=== PATIENT | male | born 1930 | race Caucasian/White ===

== ENCOUNTER → 2017-10-26 | Outpatient (CLI) | payer MEDICARE, OTHER ==
[~2017-10-26] MED LIST: ASPIR-TRIN325 M1 PO; AUGMENTIN875 MG PO; CELEBREX200 MG PO; Dyazide, Maxzide 37. PO; Ecotrin PO; FEOSOL325 MG PO; Feosol PO; HYDROCHLOROTH12.5 M3 PO; LIPITOR20 MG PO; LOTREL 5/101 CAPSULE PO; LOW DOSE ASPIRI81 M1 PO; NEXIUM40 MG PO; NORCO 5/3251 TABLET PO; SENOKOT S,PE1 TABLET PO; VYTORIN 10/41 TABLET PO; Vicodin,Lortab 5/500 PO; Vicodin,Norco 5/325 PO
== END | disposition home or self-care (01) ==
LOC: CDC 12:38
DX: Z01.810 Encounter for preprocedural cardiovascular examination (principal); K40.90 Unilateral inguinal hernia, without obstruction or gangrene, not specified as recurrent; I44.4 Left anterior fascicular block
CPT/HCPCS: 93000

== ENCOUNTER 2017-11-04 09:10 | Day surgery (SDC) | payer OTHER ==
[~2017-11-04] VITALS: Ht 165.1 cm; Wt 74.3 kg
[~2017-11-04 09:10] MED LIST changes: +ADVIL,NUPRIN,M200 MG PO; +HYDROCHLOROTHIA25 MG PO; +LOPRESSOR25 MG PO
[2017-11-04 09:40] VITALS: BP 188/91
[2017-11-04 09:46] VITALS: BP 188/91
[2017-11-04] MEDS ORDERED: ONDANSETRON HCL8 MG PO (15:00)
[2017-11-04] MEDS ORDERED: COLACE100 MG PO (15:00)
[2017-11-04] MEDS ORDERED: DILAUDID4 MG PO (15:00)
[2017-11-04 20:32] VITALS: BP 134/73
[2017-11-05 00:27] VITALS: BP 135/74
[2017-11-05 04:17] VITALS: BP 158/76
[2017-11-05 07:22] VITALS: BP 146/64
== END 2017-11-05 11:27 | disposition home or self-care (01) ==
LOC: SDC 09:10 → 2SOUTH 14:56 → SDC 16:41 → ENRESERV 16:47 → 2EAST 18:20
PROVIDERS: Surgery
PROC: 0YUA4JZ Supplement Bilateral Inguinal Region with Synthetic Substitute, Percutaneous Endoscopic Approach (ICD-10-PCS; principal; 2017-11-04)
DX: K40.20 Bilateral inguinal hernia, without obstruction or gangrene, not specified as recurrent (principal); K41.90 Unilateral femoral hernia, without obstruction or gangrene, not specified as recurrent; D17.6 Benign lipomatous neoplasm of spermatic cord; E78.5 Hyperlipidemia, unspecified; K21.9 Gastro-esophageal reflux disease without esophagitis; M54.16 Radiculopathy, lumbar region; I10 Essential (primary) hypertension; I44.4 Left anterior fascicular block; Z79.82 Long term (current) use of aspirin; Z80.0 Family history of malignant neoplasm of digestive organs
CPT/HCPCS: 85610; C1781; G0378; J0330; J0690; J1100; J1170; J2001; J2405; J2710; J2795; J3010; J3475; J7120; S0028